=== PATIENT | male | born 1970 | race Caucasian/White ===

== ENCOUNTER → 2020-08-06 | Outpatient (CLI) | payer OTHER ==
--- NOTE | 2020-08-06 11:39 | KCIC ---
EXAM: Lumbar spine MRI without contrast. HISTORY: Pain. TECHNIQUE: Multiplanar, multisequence magnetic resonance imaging of the lumbar spine was performed wi thout contrast. COMPARISON: None. FINDINGS: There is mild lumbar scoliosis. There is minimal retrolisthesis of L1 on L2 and L2 on L3. T here is multilevel endplate remodeling with disc space narrowing, disc desiccation and osteophytosis. There are multiple endplate Schmorl's nodes. There are several osseous hemangiomas. There is no acut e osseous finding or suspicious osseous lesion. The conus terminates at L1. 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 At L1-L2, there is a posterior central disc protrusion with slight superior extrusion superimposed on a disc bulge and endplate osteophytosis. There is mild bilateral facet arthropathy. There is mild ce ntral canal stenosis. At L2-L3, there is a posterior central disc protrusion superimposed on a disc bulge and endplate oste ophytosis. There is mild bilateral facet arthropathy. There is mild central canal stenosis. At L3-L4, there is a posterior central disc protrusion superimposed on a disc bulge and endplate oste ophytosis. There is mild to moderate right and mild left facet arthropathy. There is mild bilateral f oraminal stenosis. There is moderate central canal stenosis. At L4-L5, there is a posterior central to right paracentral disc protrusion and annular tear. There i s also a right foraminal annular tear. This is superimposed on a disc bulge and endplate osteophytosi s. There is mild bilateral facet arthropathy. There is mild bilateral foraminal stenosis. There is mo derate to severe central canal stenosis. At L5-S1, there is a posterior central to left paracentral disc protrusion and annular tear and there is a right lateral recess to foraminal disc protrusion and annular tear. These are superimposed on a disc bulge and endplate remodeling. There is mild bilateral facet arthropathy. There is mild right f oraminal and central canal stenosis. IMPRESSION: 1. Multilevel degenerative change involving the lumbar spine, described in detail above. The combinat ion of degenerative changes and congenital narrowing of the central canal results in stenosis at the aforementioned levels. 2. No acute osseous finding. Electronically signed by: Penelope Medina MD (08/06/2020 11:36 AM) [id number]
== END ==
LOC: KCIC MRI 10:13
DX: M47.817 Spondylosis without myelopathy or radiculopathy, lumbosacral region (principal); M51.27 Other intervertebral disc displacement, lumbosacral region; M48.07 Spinal stenosis, lumbosacral region; M41.86 Other forms of scoliosis, lumbar region; D18.09 Hemangioma of other sites
CPT/HCPCS: 72148